=== PATIENT | female | born 1960 | race Caucasian/White ===

== ENCOUNTER → 2024-11-08 10:21 | Outpatient (REF) | payer OTHER, SELFPAY | LOC: HWRAD 10:21 | PROVIDERS: ATTENDING PHYSICIAN Physician Assistant | DX: M25.572 Pain in left ankle and joints of left foot (principal); M79.672 Pain in left foot | CPT/HCPCS: 73610; 73630 ==

== ENCOUNTER 2024-11-15 19:19 | Emergency (ER) | payer OTHER, SELFPAY ==
[2024-11-15 19:24] VITALS: BP 162/86
--- NOTE | 2024-11-15 20:40 | ED.GENMED ---
History of Present Illness
General
Chief Complaint: Depression
Source: patient
Exam Limitations: none
Time Seen by Provider: 11/15/24 20:23
History of Present Illness
History of Present Illness:
64-year-old female presents with request to refill her Zoloft. She ran out of her Zoloft which she has been taking 100 mg daily. She ran out of this 1 week ago. By chance, at this time her mother as well. She was seen initially at
the urgent care and was referred here. She is not suicidal she is denying thoughts of harming others. She states she is tearful. Her family doctor but she has been using left the practice and has not been able to find an appointment. She is
scheduled with a new doctor however that is not until several months from now. No other complaints at this time.
Past History
Past History
ED Past Medical History: Asthma, Fibromyalgia and Hypothyroidism
ED Past Surgical History: Orthopedic (Bilateral knee surgery and replacement) and Other (Gastric Bypass 2011, partial thyroidectomy, bilateral cataract surgery)
Social History
Tobacco: Non-smoker
Alcohol: None
Drug: None
Living: with family
Employment: Employed
Phy Exam
Physical Exam
Physical Exam:
General: WEll appearing female NAD
HEENT: NC/AT
Psychiatric exam: Tearful but calm and cooperative denying thoughts of harming self or others. Reasonable thought process.
Extremities: No cyanosis
Course
Vital Signs
Initial and Last Documented VS:
Initial Vital Signs
Temp Pulse BP Pulse Ox
97.7 F 77 162/86 94
11/15/24 19:24 11/15/24 19:24 11/15/24 19:24 11/15/24 19:24
Last Documented Vital Signs
Temp Pulse BP Pulse Ox
97.7 F 77 162/86 94
11/15/24 19:24 11/15/24 19:24 11/15/24 19:24 11/15/24 19:24
MDM/Problems Addressed
Differential Diagnosis Includes:
Patient requesting refill of Zoloft. I think her mood is appropriate given the recent loss of her mother and history of depression. She did run out of her Zoloft. At this point I see no imminent danger to herself or others. Will refill her
Zoloft prescription and have her follow-up with family doctor.
*Critical Care Note
Total Time (30-74mins, 75-104mins- exclusive of procedures): Not Applicable
ED Attending Note
-
Portions of this chart may have been created with voice recognition software.� Occasional wrong word or��sound alike� substitutions may have occurred due to the inherent limitations of voice recognition software.
Discharge Plan
Departure
Patient Disposition: Home (Routine Discharge)
Date of Disposition: 11/15/24
Time of Disposition: 20:42
Patient with high blood pressure during this ER visit?: No
Discharge Problem:
Depression
Instructions: Depression, Adult (DC)
Prescriptions:
New
sertraline [Zoloft] 100 mg tablet
100 mg PO DAILY Qty: 90 3RF
sertraline [Zoloft] 100 mg tablet
100 mg PO DAILY Qty: 14 0RF
No Action
sertraline 100 MG tablet
150 mg PO DAILY
meloxicam 7.5 MG tablet
7.5 mg PO DAILY
gabapentin 300 MG capsule
900 mg PO HS
hydroxychloroquine 200 MG tablet
400 mg PO HS
zolpidem 10 MG tablet
12.5 mg PO HS
alprazolam 0.25 MG tablet
0.25 mg PO Q6HPRN PRN (Reason: anxiety)
valsartan 160 MG tablet
160 mg PO DAILY
Feminine Moist-Lubricating Gel
1 appful VAG HS
Vitamin B12:
1 patch topical HS
Vitamin D2
1.25 mg PO DAILY
Iron Patch
45 mg PO HS
Multi-Vitamin Patch
1 dose topical HS
Sleep Starter Patch
1 dose topical HS
Vitamin D3/Calcium Patch
1 dose topical HS
oxycodone-acetaminophen 5 MG/325 MG tablet
0.5 - 2 tab PO Q4HPRN PRN (Reason: pain not relieved by ibuprofen) Qty: 15 0RF
ibuprofen 400 MG tablet
400 - 600 mg PO QIDPRN PRN (Reason: pain) 0RF
cannabidiol [Epidiolex] 1 UNIT solution
1 unit PO DIRECTED
Referrals:
NONE,* [Family Provider, Internal Medicine]
Activity Restrictions/Additional Instructions:
A 2-week supply of Zoloft was sent to your [facility] pharmacy. A longer prescription for 90 days and a mail-in order was sent into the [facility]. Please return here if needed otherwise follow-up with your doctor as planned
Interventions
Interventions:
*Risk Screen - Suicide Last Done: 11/15/24 19:27
*General Assessment Last Done: 11/15/24 19:27
*Neglect/Abuse Screening Last Done: 11/15/24 19:27
Discharge Date and Time
Print Language: FINNISH
[2024-11-15 21:34] VITALS: BP 143/73
[2024-11-15] MEDS: ZOLOFT 100 MG PO (22:03)
== END 2024-11-15 22:07 | disposition home or self-care (01) ==
LOC: EMR 19:19
PROVIDERS: EMERGENCY PHYSICIAN Emergency Medicine
DX: F32.A Depression, unspecified (principal); J45.909 Unspecified asthma, uncomplicated; E03.9 Hypothyroidism, unspecified; M79.7 Fibromyalgia; Z98.84 Bariatric surgery status
CPT/HCPCS: 99283